=== PATIENT | male | born 1955 | race Caucasian/White ===

== ENCOUNTER → 2024-03-24 | Outpatient (CLI) | payer MEDICARE, BC ==
[2024-03-24 09:48] LABS: BASO # 0.05 K/mm3 (0.02-0.10); EOS # 0.25 K/mm3 (0.04-0.40); EOS % 4.1 % (0.0-4.0); HEMATOCRIT 46.8 % (42.0-52.0); HEMOGLOBIN 15.2 g/dL (13.5-18.0); LYMPH# 1.87 K/mm3 (1.50-4.00); MEAN CELL VOLUME 94 fl (78-100); MEAN CORPUSCULAR HEMOGLOBIN 30 pg (27-31); MEAN CORPUSCULAR HGB CONC 33 g/dL (33-37); MEAN PLATELET VOLUME 10.1 fl (7.4-10.4); MONO # 0.66 K/mm3 (0.20-0.80); NEU # 3.23 K/mm3 (1.40-6.50); PLATELET COUNT 247 K/mm3 (130-400); RED CELL DISTRIBUTION WIDTH 12.4 % (11.5-14.5); WHITE BLOOD COUNT 6.1 K/mm3 (4.8-10.8)
[2024-03-24 09:56] LABS: ALBUMIN 4.6 g/dL (3.4-4.8)
[2024-03-24 09:57] LABS: CALCIUM 9.6 mg/dL (8.3-10.5)
[2024-03-24 09:58] LABS: TOTAL PROTEIN 7.8 g/dL (6.2-8.1)
[2024-03-24 10:00] LABS: TOTAL BILIRUBIN 0.6 mg/dL (0.2-1.2)
[2024-03-24 10:04] LABS: URINE APPEARANCE CLEAR (CLEAR); URINE BILIRUBIN NEGATIVE (NEGATIVE); URINE COLOR YELLOW (YELLOW); URINE GLUCOSE NEGATIVE (NEGATIVE); URINE KETONE NEGATIVE (NEGATIVE); URINE PROTEIN(semi-quant) NEGATIVE (NEGATIVE)
[2024-03-24 10:05] LABS: MAGNESIUM 2.23 mg/dL (1.60-2.60); URINE BLOOD NEGATIVE (NEGATIVE); URINE LEUKOCYTE ESTERASE NEGATIVE (NEGATIVE); URINE MUCUS PRESENT (NOT PRESENT); URINE NITRATE NEGATIVE (NEGATIVE); URINE WBC 0-1 /hpf (0-3)
[2024-03-24 23:04] LABS: FOLLICLE STIMULATING HORMONE 4.5 mIU/mL (1.0-12.0)
[2024-03-27 13:49] LABS: PROLACTIN AMS 5.3 ng/mL (3.5-19.4)
[2024-03-31 11:46] LABS: LUTENIZING HORMONE 2.7
== END ==
LOC: LAB 09:25
PROVIDERS: Internal Medicine
DX: Z12.5 Encounter for screening for malignant neoplasm of prostate (principal); N20.0 Calculus of kidney; E23.0 Hypopituitarism; E78.2 Mixed hyperlipidemia; K90.9 Intestinal malabsorption, unspecified